=== PATIENT | female | born 1960 | race Hispanic/Latino ===

== ENCOUNTER → 2017-06-21 | Outpatient (CLI) | payer OTHER ==
[~2017-06-21] MED LIST: ACTIVELLA PO; CALTRATE 600 W1 EACH PO; OMEPRAZOLE40 MG PO; vit d3 PO
--- NOTE | 2017-06-21 10:41 | Diagnostic Imaging Report ---
[facility], 06/02/2016, 10:07. INDICATIONS:Fatty liver TECHNIQUE: Asif scale color Doppler ultrasound FINDINGS: Imaged segments of the inferior vena cava, abdominal aorta, pancreas and right kidney are normal. Right liver span 13.2 cm. Mildly increased parenchymal echogenicity. Smooth margin. Portal vein diameter 9 mm; normal flow direction. Normal gallbladder. Common bile duct diameter 3 mm. CONCLUSION: Unchanged hepatic steatosis relative May 2016. Dictated by: Patrick Spencer M.D. on 06/21/2017 at 10:42 Electronically approved by: Patrick Spencer M.D. on 06/21/2017 at 10:42
== END ==
LOC: US 08:25
PROVIDERS: ATTEND Internal Medicine Gastroenterology
DX: K76.0 Fatty (change of) liver, not elsewhere classified (principal)
CPT/HCPCS: 76705

== ENCOUNTER → 2020-08-04 | Outpatient (CLI) | payer OTHER | LOC: US 08:27 | PROVIDERS: ATTEND Internal Medicine Gastroenterology | DX: K76.0 Fatty (change of) liver, not elsewhere classified (principal) | CPT/HCPCS: 76705 ==

== ENCOUNTER → 2020-08-14 | Day surgery (SDC) | payer OTHER ==
[~2020-08-14] MED LIST changes: +DOCUSATE SODIU100 MG PO; +FENTANYL CITRATE/PF 100MCG/2 ML INJ ONE; +HYOSCYAMINE SULFATE 0.5 MG/ML INJ ONE; +LIDOCAINE HCL 2% LOCAL INJ 5 ML SDV VIAL INJ ONE; +MIDAZOLAM HCL 2 MG/2 ML VIAL ONE; +PROPOFOL IV EMULSION 10 MG/ML 20 ML VIAL ONE
[2020-08-14 17:35] VITALS: BP 131/89
== END | disposition home or self-care (01) ==
LOC: OR 12:25
PROVIDERS: ATTEND Internal Medicine Gastroenterology
DX: K76.0 Fatty (change of) liver, not elsewhere classified (principal); Z86.010 Personal history of colon polyps; K29.70 Gastritis, unspecified, without bleeding; K22.8 Other specified diseases of esophagus; K20.90 Esophagitis, unspecified without bleeding; K31.89 Other diseases of stomach and duodenum; K21.9 Gastro-esophageal reflux disease without esophagitis; K57.30 Diverticulosis of large intestine without perforation or abscess without bleeding; K64.8 Other hemorrhoids; F41.9 Anxiety disorder, unspecified; Z01.810 Encounter for preprocedural cardiovascular examination; Z68.29 Body mass index [BMI] 29.0-29.9, adult; Z80.0 Family history of malignant neoplasm of digestive organs
CPT/HCPCS: 43239; 45378; 93005; J1980; J2001; J2250; J2704; J3010